=== PATIENT | female | born 2000 | race African-American/Black ===

== ENCOUNTER 2025-01-28 01:50 | Inpatient (IN) | payer MEDICAID, OTHER ==
[~2025-01-28] VITALS: Ht 162.6 cm; Wt 75.9 kg
[2025-01-28] MEDS ORDERED: haloperidoL LACTATE 5 MG/ML VIAL IM ONE (02:15)
[2025-01-28] MEDS ORDERED: DiphenhydrAMINE HCL 50 MG/ML VIAL IM ONE (02:15)
[2025-01-28] MEDS ORDERED: LORazepam 2 MG/ML VIAL IM ONE (02:15)
[2025-01-28 02:48] LABS: COVID AG,FIA SOURCE NASAL SWAB
[2025-01-28] MEDS: haloperidoL 5 MG TABLET PO ONE (02:51)
[2025-01-28] MEDS: LORazepam 2 MG TABLET PO ONE (02:51)
[2025-01-28] MEDS: DiphenhydrAMINE HCL 25 MG CAPSULE PO ONE (02:51)
[2025-01-28] MEDS: DiphenhydrAMINE HCL 50 MG/ML VIAL IM ONE (03:04)
[2025-01-28] MEDS: haloperidoL LACTATE 5 MG/ML VIAL IM ONE (03:04)
[2025-01-28] MEDS: LORazepam 2 MG/ML VIAL IM ONE (03:05)
[2025-01-28 03:06] LABS: SARS-COV2 (COVID) ANTIGEN,FIA Negative (Negative)
[2025-01-28] MEDS ORDERED: OLANZapine 5 MG RAPDIS TABLET PO PRN ×2 (03:30→23:30)
[2025-01-28] MEDS ORDERED: LORazepam 2 MG TABLET PO PRN ×2 (03:30→23:30)
[2025-01-28] MEDS ORDERED: ZOLPIDEM TARTRATE 10 MG TABLET PO PRN ×2 (03:30→23:30)
[2025-01-28 04:28] LABS: ANION GAP 12 mmol/L (8-16); CALCIUM, TOTAL 9.4 mg/dL (8.8-10.5); CARBON DIOXIDE 27 mmol/L (22-29); CHLORIDE 103 mmol/L (98-107); CREATININE 0.94 mg/dL (0.60-1.30); GLOMERULAR FILTR. RATE CALC > 60 mL/min (>60); GLUCOSE,RANDOM 97 mg/dL (70-110); POTASSIUM 3.4 mmol/L (3.5-5.1); SODIUM SERUM 142 mmol/L (136-145); UREA NITROGEN, BLOOD 20 mg/dL (7-18)
[2025-01-28 05:01] LABS: BASOPHILS % (AUTO) 0.6 % (0.0-2.0); EOSINOPHILS % (AUTO) 3.4 % (1.0-6.0); HEMATOCRIT 35.9 % (36-46); HEMOGLOBIN 12.3 g/dL (12.0-16.0); LYMPHOCYTES # (AUTO) 2.1 K/uL (1.0-4.8); LYMPHOCYTES % (AUTO) 42.3 % (22.0-44.0); MEAN CORPUSCULAR HEMOGLOBIN 32.1 pg (26.0-34.0); MEAN CORPUSCULAR HGB CONC 34.2 G/dL (31.0-37.0); MEAN CORPUSCULAR VOLUME 94 fL (80-100); MONOCYTES # (AUTO) 0.6 K/uL (0.1-1.0); MONOCYTES % (AUTO) 11.8 % (2.0-9.0); NEUTROPHILS # (AUTO) 2.1 K/uL (1.8-7.7); NEUTROPHILS % (AUTO) 41.9 % (40.0-70.0); PLATELET COUNT (AUTO) 254 K/uL (150-450); RED BLOOD CELL COUNT(AUTO) 3.83 MIL/uL (4.00-5.20); RED CELL DISTRIBUTION WIDTH 12.4 % (11.5-14.5)
[2025-01-28] MEDS: POTASSIUM CHLORIDE 20 MEQ ER TABLET PO ONE ×2 (05:16→12:48)
[2025-01-28 07:58] VITALS: O2SAT 98
[2025-01-28] MEDS ORDERED: AMMONIA 1 EA AMP IH ONE ×2 (13:02→13:15)
[2025-01-28 15:08] VITALS: BP 110/65; PULSE 74; RESP 14; TEMP 97.3; O2SAT 97
[2025-01-28 20:15] VITALS: TEMP 97.4
[2025-01-28 23:30] VITALS: RESP 18
[2025-01-28] MEDS ORDERED: GuaiFENesin/D-METHORPHAN [SUGAR-FREE] 200-20MG/10 ML SYRUP UDCUP PO PRN (23:30)
[2025-01-28] MEDS ORDERED: MAGNESIUM HYDROXIDE SUSPENSION 30 ML UDCUP PO PRN (23:30)
[2025-01-28] MEDS ORDERED: haloperidoL 5 MG TABLET PO PRN (23:30)
[2025-01-28] MEDS ORDERED: HydrOXYzine PAMOATE 50 MG CAPSULE PO PRN (23:30)
[2025-01-28] MEDS ORDERED: ACETAMINOPHEN 325 MG TABLET PO PRN (23:30)
[2025-01-28] MEDS ORDERED: LORazepam 1 MG TABLET PO PRN (23:30)
[2025-01-28] MEDS ORDERED: PROMETHAZINE HCL 25 MG TABLET PO PRN (23:30)
[2025-01-28] MEDS ORDERED: MAG HYDROX/ALUMINUM HYD/SIMETH ES 30 ML SUSPENSION UDCUP PO PRN (23:30)
[2025-01-28] MEDS ORDERED: LOPERAMIDE HCL 2 MG CAPSULE PO PRN ×2 (23:30)
[2025-01-28] MEDS ORDERED: QUEtiapine FUMARATE 100 MG TABLET PO PRN (23:30)
[2025-01-28] MEDS ORDERED: TUBERCULIN, PURIFIED PROTEIN DERIVATIVE 5 TU/0.1 ML SYRINGE ID ONE (23:30)
[2025-01-29 00:30] VITALS: RESP 18
[2025-01-29 02:30] VITALS: RESP 19
[2025-01-29 03:30] VITALS: RESP 18
[2025-01-29 08:30] VITALS: RESP 16
[2025-01-29] MEDS: FOLIC ACID 1 MG TABLET PO SCH (09:00)
[2025-01-29] MEDS: MULTIVITAMINS WITH MINERALS, THERAPEUTIC TABLET PO SCH (09:00)
[2025-01-29] MEDS: THIAMINE 100 MG TABLET PO SCH (09:00)
[2025-01-29] MEDS: DIVALPROEX SODIUM 500 MG ER TABLET PO SCH (13:07)
[2025-01-29] MEDS ORDERED: POTASSIUM CHLORIDE 20 MEQ ER TABLET PO ONE (14:30)
[2025-01-29] MEDS ORDERED: PALIPERIDONE PALMITATE 234 MG/1.5 ML SYRINGE IM ONE (16:00)
[2025-01-29 23:23] VITALS: RESP 18
[2025-01-30 01:14] VITALS: RESP 16
[2025-01-30 08:12] VITALS: RESP 17
[2025-01-30] MEDS: NALTREXONE HCL 50 MG TABLET PO SCH (09:00)
[2025-01-30] MEDS: OLANZapine 5 MG RAPDIS TABLET PO SCH (21:00)
[2025-01-30] MEDS: MELATONIN 5 MG TABLET PO SCH (21:00)
[2025-01-31 08:08] VITALS: RESP 16
[2025-02-01 08:23] VITALS: RESP 17
[2025-02-01 21:07] VITALS: RESP 18
[2025-02-02 09:18] VITALS: RESP 17
[2025-02-02] MEDS: PALIPERIDONE PALMITATE 156 MG/ML SYRINGE IM ONE (09:39)
[2025-02-02 20:26] VITALS: RESP 18
[2025-02-03 08:08] VITALS: RESP 16
[2025-02-04 08:17] VITALS: RESP 16
[2025-02-04] MEDS ORDERED: NALT50TA33 PO (16:41)
[2025-02-04 20:14] VITALS: RESP 18
[2025-02-05 08:08] VITALS: BP 118/76; PULSE 79; RESP 16; TEMP 97.3; O2SAT 99
== END 2025-02-05 10:45 | disposition left against medical advice (07) | DRG 750 ==
LOC: EMS 02:06 → B3A 13:38
PROVIDERS: ADMIT Psychiatry & Neurology Psychiatry; ATTEND Psychiatry & Neurology Psychiatry
PROC: GZHZZZZ Group Psychotherapy (ICD-10-PCS; principal; 2025-01-28)
PROC: GZ51ZZZ Individual Psychotherapy, Behavioral (ICD-10-PCS; 2025-01-28)
DX: F25.0 Schizoaffective disorder, bipolar type (principal); G93.41 Metabolic encephalopathy; Z53.29 Procedure and treatment not carried out because of patient's decision for other reasons; Z20.822 Contact with and (suspected) exposure to COVID-19; Z63.9 Problem related to primary support group, unspecified; Z65.3 Problems related to other legal circumstances; Z59.9 Problem related to housing and economic circumstances, unspecified; Z55.9 Problems related to education and literacy, unspecified
CPT/HCPCS: 80048; 85025; G0480; J1200; J1630; J2060

== ENCOUNTER 2025-02-17 20:26 | Inpatient (IN) | payer MEDICAID ==
[~2025-02-17] VITALS: Ht 157.5 cm; Wt 75.7 kg
[~2025-02-17 20:26] MED LIST: NALT50TA33 PO
[2025-02-17 21:15] VITALS: BP 113/59; PULSE 88; RESP 18; TEMP 96.5; O2SAT 99
[2025-02-17] MEDS ORDERED: PROMETHAZINE HCL 25 MG TABLET PO PRN (22:15)
[2025-02-17] MEDS ORDERED: GuaiFENesin/D-METHORPHAN [SUGAR-FREE] 200-20MG/10 ML SYRUP UDCUP PO PRN (22:15)
[2025-02-17] MEDS ORDERED: OLANZapine 5 MG RAPDIS TABLET PO PRN (22:15)
[2025-02-17] MEDS ORDERED: MAGNESIUM HYDROXIDE SUSPENSION 30 ML UDCUP PO PRN (22:15)
[2025-02-17] MEDS ORDERED: MAG HYDROX/ALUMINUM HYD/SIMETH ES 30 ML SUSPENSION UDCUP PO PRN (22:15)
[2025-02-17] MEDS ORDERED: ACETAMINOPHEN 325 MG TABLET PO PRN (22:15)
[2025-02-17] MEDS ORDERED: LOPERAMIDE HCL 2 MG CAPSULE PO PRN (22:15)
[2025-02-17] MEDS ORDERED: ZOLPIDEM TARTRATE 10 MG TABLET PO PRN (22:15)
[2025-02-17 23:41] LABS: GLUCOMETER DEV NAME(LOC) POC.BV; POC SARS-COV2 AG, FIA NEGATIVE (NEGATIVE)
[2025-02-17 23:50] VITALS: BP 119/77; PULSE 66; RESP 17; TEMP 96.7; O2SAT 100
[2025-02-18 08:16] VITALS: RESP 16
[2025-02-18] MEDS: MULTIVITAMINS WITH MINERALS, THERAPEUTIC TABLET PO SCH (08:54)
[2025-02-18] MEDS: FOLIC ACID 1 MG TABLET PO SCH (08:54)
[2025-02-18] MEDS: THIAMINE 100 MG TABLET PO SCH (08:55)
[2025-02-18] MEDS: NALTREXONE HCL 50 MG TABLET PO SCH (08:55)
[2025-02-18] MEDS: PALIPERIDONE PALMITATE 234 MG/1.5 ML SYRINGE IM ONE (09:00)
[2025-02-18] MEDS: MELATONIN 5 MG TABLET PO SCH (20:44)
[2025-02-18] MEDS: OLANZapine 5 MG RAPDIS TABLET PO SCH (20:44)
[2025-02-19 08:27] VITALS: RESP 18
[2025-02-19] MEDS ORDERED: TUBERCULIN, PURIFIED PROTEIN DERIVATIVE 5 TU/0.1 ML SYRINGE ID ONE (10:30)
[2025-02-19 20:21] VITALS: RESP 19
[2025-02-19] MEDS: OLANZapine 10 MG RAPDIS TABLET PO SCH (20:54)
[2025-02-20 08:24] VITALS: BP 118/76; PULSE 75; RESP 16; TEMP 97.8; O2SAT 98
[2025-02-20 20:37] VITALS: BP 115/80; PULSE 82; RESP 16; TEMP 98.1; O2SAT 97
[2025-02-21 08:12] VITALS: RESP 17
[2025-02-21 09:58] LABS: APPEARANCE,URINE CLEAR (CLEAR); GLUCOSE, URINE (UA) 300-500 mg/dL (NEGATIVE); LEUKOCYTE ESTERASE ,URINE NEGATIVE (NEGATIVE); NITRATE,URINE NEGATIVE (NEGATIVE); OCCULT BLOOD,URINE NEGATIVE (NEGATIVE); SPECIFIC GRAVITIY, URINE 1.012 (1.003-1.030)
[2025-02-21 10:05] LABS: HCG,QUAL URINE NEGATIVE (NEGATIVE)
[2025-02-21 10:07] LABS: ALCOHOL, URINE DRUG SCREEN NEGATIVE (NEGATIVE); AMPHET/METH SCREEN,URINE NEGATIVE (NEGATIVE); BARBITURATE SCREEN, URINE NEGATIVE (NEGATIVE); CANNABINOID SCREEN,URINE NEGATIVE (NEGATIVE); COCAINE SCREEN,URINE NEGATIVE (NEGATIVE); METHADONE SCREEN, URINE NEGATIVE (NEGATIVE)
[2025-02-21 10:16] LABS: PH,URINE DRUG SCREEN 5.0 (5.0-8.0)
[2025-02-21] MEDS: DIVALPROEX SODIUM 500 MG ER TABLET PO SCH (17:00)
[2025-02-21 20:21] VITALS: BP 132/87; PULSE 83; RESP 17; TEMP 97.1; O2SAT 98
[2025-02-22 08:35] VITALS: RESP 16
[2025-02-22] MEDS ORDERED: PALIPERIDONE PALMITATE 156 MG/ML SYRINGE IM ONE (09:00)
[2025-02-23 08:16] VITALS: RESP 18
[2025-02-23 20:27] VITALS: BP 127/71; PULSE 94; RESP 17; TEMP 98.1; O2SAT 100
[2025-02-24 08:13] VITALS: RESP 16
[2025-02-24] MEDS ORDERED: OLAN10TA26 PO (15:42)
[2025-02-24] MEDS ORDERED: DIVA-153 PO (15:42)
[2025-02-24] MEDS ORDERED: MELA5TAB40 PO (15:42)
[2025-02-24 20:18] VITALS: BP 130/82; PULSE 82; RESP 17; TEMP 98.1; O2SAT 98
[2025-02-25 08:16] VITALS: BP 118/72; PULSE 91; RESP 16; TEMP 97.3; O2SAT 99
== END 2025-02-25 12:39 | disposition home or self-care (01) | DRG 750 ==
LOC: B3A 22:35
PROVIDERS: ADMIT Psychiatry & Neurology Psychiatry; ATTEND Psychiatry & Neurology Psychiatry
PROC: GZHZZZZ Group Psychotherapy (ICD-10-PCS; principal; 2025-02-17)
PROC: GZ58ZZZ Individual Psychotherapy, Cognitive-Behavioral (ICD-10-PCS; 2025-02-17)
PROC: GZ56ZZZ Individual Psychotherapy, Supportive (ICD-10-PCS; 2025-02-17)
DX: F25.9 Schizoaffective disorder, unspecified (principal); F94.0 Selective mutism; Z20.822 Contact with and (suspected) exposure to COVID-19; Z55.9 Problems related to education and literacy, unspecified; Z59.00 Homelessness unspecified; Z63.9 Problem related to primary support group, unspecified; Z65.3 Problems related to other legal circumstances
CPT/HCPCS: 80307; 81001; 84703; 87081